=== PATIENT | female | born 1985 | race Caucasian/White ===

== ENCOUNTER 2017-11-16 12:59 | Observation (INO) | payer OTHER ==
[~2017-11-16] VITALS: Ht 162.6 cm; Wt 82.6 kg
[2017-11-16] MEDS ORDERED: PREN-380 PO (13:56)
[2017-11-16 14:55] VITALS: BP 124/79
[2017-11-16] MEDS ORDERED: INFLUENZA VIRUS VACCINE QUAD 0.5 ML SYR IMVAC SCH (22:00)
== END 2017-11-16 16:35 | disposition home or self-care (01) ==
LOC: MLD 12:59
PROVIDERS: ADMIT Obstetrics & Gynecology; ATTEND Obstetrics & Gynecology
DX: O26.893 Other specified pregnancy related conditions, third trimester (principal); R10.9 Unspecified abdominal pain; Z3A.36 36 weeks gestation of pregnancy
CPT/HCPCS: 76805; G0378; Q0092

== ENCOUNTER 2017-11-19 16:55 | Inpatient (IN) | payer OTHER ==
[~2017-11-19] VITALS: Ht 162.6 cm; Wt 82.6 kg
[~2017-11-19 16:55] MED LIST: PREN-380 PO
[2017-11-19] MEDS ORDERED: ACETAMINOPHEN 325 MG TAB ONE (17:32)
[2017-11-19 18:00] VITALS: BP 133/83
[2017-11-19] MEDS: LACTATED RINGERS 1,000 ML IV SCH (22:19)
[2017-11-20] MEDS: LACTATED RINGERS 1,000 ML IV SCH ×2 (05:48→15:36)
[2017-11-20] MEDS ORDERED: ACETAMINOPHEN 325 MG TAB ONE ×3 (08:03→19:55)
[2017-11-20] MEDS: ACETAMINOPHEN 325 MG TAB PO PRN ×3 (08:05→19:59)
[2017-11-20] MEDS ORDERED: LABETALOL 200 MG TAB PO STA (08:29)
[2017-11-20] MEDS ORDERED: LABETALOL 200 MG TAB ONE ×2 (08:42→08:43)
--- NOTE | 2017-11-20 09:08 | NUR ---
PATIENT HAS BEEN SCREENED AND CATEGORIZED LOW NUTRITION RISK. PATIENT WILL BE SEEN WITHIN 7 DAYS OF ADMISSION. 11/25/[address]
[2017-11-20 11:18] LABS: BASOPHILS # (AUTO) 0.1 K/uL (0.00-0.22); BASOPHILS % (AUTO) 0.7 % (0.0-2.0); EOSINOPHILS # (AUTO) 0.1 K/uL (0-0.4); EOSINOPHILS % (AUTO) 0.8 % (0.0-4.0); HEMATOCRIT 35.4 % (36-48); HEMOGLOBIN 11.9 g/dL (12.0-16.0); LYMPHOCYTES # (AUTO) 2.2 K/uL (2.5-16.5); LYMPHOCYTES % (AUTO) 22.9 % (20.5-51.1); MEAN CORPUSCULAR HEMOGLOBIN 28 pg (27-31); MEAN CORPUSCULAR HGB CONC 34 g/dL (33-37); MEAN CORPUSCULAR VOLUME 82 fL (80-94); MONOCYTES # (AUTO) 0.7 K/uL (0.8-1.0); MONOCYTES % (AUTO) 7.5 % (1.7-9.3); NEUTROPHILS # (AUTO) 6.4 K/uL (1.8-7.7); NEUTROPHILS % (AUTO) 68.1 % (42.2-75.2); PLATELET COUNT (AUTO) 255 K/uL (140-450); RED BLOOD CELL COUNT(AUTO) 4.31 MIL/uL (4.20-5.40); RED CELL DISTRIBUTION WIDTH 14.8 % (11.6-13.7); WHITE BLOOD COUNT (AUTO) 9.5 K/uL (4.8-10.8)
[2017-11-20 11:47] LABS: ANION GAP 14.4 (8-16); CARBON DIOXIDE 20.6 mmol/L (21-32); CREATININE 0.5 mg/dL (0.6-1.3)
[2017-11-20 11:51] LABS: ALBUMIN 2.3 g/dL (3.4-5.0); TOTAL BILIRUBIN 0.2 mg/dL (0.0-1.0)
[2017-11-20 11:52] LABS: PROTHROMBIN TIME 9.4 secs (10.8-13.4)
[2017-11-20] MEDS ORDERED: MISOPROSTOL 25 MCG TAB VG SCH (12:05)
[2017-11-20] MEDS ORDERED: NALBUPHINE HYDROCHLORIDE 10 MG/ML VIAL IVP PRN (12:10)
[2017-11-20] MEDS ORDERED: CARBOPROST 250 MCG/ML AMP IM PRN (12:10)
[2017-11-20] MEDS ORDERED: METHYLERGONOVINE 0.2 MG/ML AMP IM PRN ×2 (12:10→20:30)
[2017-11-20] MEDS ORDERED: PROMETHAZINE 25 MG/ML VIAL IVP PRN (12:10)
[2017-11-20] MEDS ORDERED: OXYTOCIN 10 UNITS/ML VIAL IM SCH (12:10)
[2017-11-20] MEDS ORDERED: MISOPROSTOL 25 MCG TAB VG PRN (12:10)
[2017-11-20] MEDS ORDERED: AMPICILLIN 2,000 MG in NACL 0.9% 100 ML IV SCH (14:15)
[2017-11-20] MEDS ORDERED: MISOPROSTOL 25 MCG TAB ONE (15:33)
[2017-11-20] MEDS ORDERED: AMPICILLIN 2,000 MG VIAL ONE (15:38)
[2017-11-20] MEDS ORDERED: AMPICILLIN 1,000 MG in NACL 0.9% 50 ML IV SCH (16:00)
[2017-11-20] MEDS ORDERED: AMPICILLIN 1,000 MG VIAL ONE (19:55)
[2017-11-20] MEDS ORDERED: OXYTOCIN 20 UNITS in LACTATED RINGERS 1,000 ML IV SCH (20:27)
[2017-11-20] MEDS ORDERED: oxyCODONE/APAP 5/325 MG 1 TAB TAB PO PRN (20:30)
[2017-11-20] MEDS ORDERED: TEMAZEPAM 15 MG CAP PO PRN (20:30)
[2017-11-20] MEDS ORDERED: TRIMETHOBENZAMIDE 200 MG/2 ML SYR IM PRN (20:30)
[2017-11-20] MEDS ORDERED: IBUPROFEN 800 MG TAB PO PRN (20:30)
[2017-11-20] MEDS ORDERED: MEASLES, MUMPS, AND RUBELLA 1 VIAL SQVAC PRN (20:30)
[2017-11-20] MEDS ORDERED: HYDROcodone/APAP 5/325 MG 1 TAB TAB PO PRN (20:30)
[2017-11-20] MEDS ORDERED: SIMETHICONE 80 MG TAB.CHEW PO PRN (20:30)
[2017-11-20] MEDS ORDERED: LABETALOL 100 MG TAB PO SCH (21:00)
[2017-11-20] MEDS: DOCUSATE SOD/SENNA 50/8.6 MG 1 TAB PO SCH (21:00)
[2017-11-20] MEDS ORDERED: LABETALOL 100 MG TAB ONE (21:36)
[2017-11-21] MEDS ORDERED: NALBUPHINE HYDROCHLORIDE 10 MG/ML VIAL ONE (01:18)
[2017-11-21] MEDS ORDERED: PROMETHAZINE 25 MG/ML VIAL ONE (01:19)
[2017-11-21] MEDS ORDERED: PROMETHAZINE 25 MG/ML VIAL IVP PRN (01:35)
[2017-11-21] MEDS ORDERED: NALBUPHINE 10 MG/ML AMP IVP PRN (01:35)
[2017-11-21] MEDS ORDERED: BUPIVACAINE 0.125%/NS PREMIX 250 ML ONE (02:39)
[2017-11-21] MEDS ORDERED: OXYTOCIN 10 UNITS/ML VIAL ONE ×2 (03:28)
[2017-11-21 08:26] LABS: BASOPHILS # (AUTO) 0.1 K/uL (0.00-0.22); BASOPHILS % (AUTO) 0.5 % (0.0-2.0); EOSINOPHILS # (AUTO) 0.1 K/uL (0-0.4); EOSINOPHILS % (AUTO) 0.9 % (0.0-4.0); HEMATOCRIT 34.9 % (36-48); HEMOGLOBIN 11.6 g/dL (12.0-16.0); LYMPHOCYTES # (AUTO) 1.5 K/uL (2.5-16.5); LYMPHOCYTES % (AUTO) 9.4 % (20.5-51.1); MEAN CORPUSCULAR HEMOGLOBIN 28 pg (27-31); MEAN CORPUSCULAR HGB CONC 33 g/dL (33-37); MEAN CORPUSCULAR VOLUME 84 fL (80-94); MONOCYTES # (AUTO) 0.9 K/uL (0.8-1.0); MONOCYTES % (AUTO) 5.9 % (1.7-9.3); NEUTROPHILS # (AUTO) 13.2 K/uL (1.8-7.7); NEUTROPHILS % (AUTO) 83.3 % (42.2-75.2); PLATELET COUNT (AUTO) 262 K/uL (140-450); RED BLOOD CELL COUNT(AUTO) 4.18 MIL/uL (4.20-5.40); WHITE BLOOD COUNT (AUTO) 15.8 K/uL (4.8-10.8)
[2017-11-21] MEDS: DOCUSATE SOD/SENNA 50/8.6 MG 1 TAB PO SCH (22:41)
[2017-11-22] MEDS ORDERED: IBUP-1842 PO (09:43)
== END 2017-11-22 16:15 | disposition home or self-care (01) | DRG 560 ==
LOC: MLD 16:55 → OBSVTOIN 11-20 12:05 → MFCC 11-21 08:30
PROVIDERS: ADMIT Obstetrics & Gynecology; ATTEND Obstetrics & Gynecology
PROC: 10E0XZZ Delivery of Products of Conception, External Approach (ICD-10-PCS; principal; 2017-11-21)
PROC: 3E0P7VZ Introduction of Hormone into Female Reproductive, Via Natural or Artificial Opening (ICD-10-PCS; 2017-11-21)
PROC: 00HU33Z Insertion of Infusion Device into Spinal Canal, Percutaneous Approach (ICD-10-PCS; 2017-11-21)
PROC: 3E0R3BZ Introduction of Anesthetic Agent into Spinal Canal, Percutaneous Approach (ICD-10-PCS; 2017-11-21)
PROC: 3E0234Z Introduction of Serum, Toxoid and Vaccine into Muscle, Percutaneous Approach (ICD-10-PCS; 2017-11-22)
DX: O77.0 Labor and delivery complicated by meconium in amniotic fluid (principal); O89.4 Spinal and epidural anesthesia-induced headache during the puerperium; Z23 Encounter for immunization; Z37.0 Single live birth; Z3A.37 37 weeks gestation of pregnancy
CPT/HCPCS: G0378 ×19; 36415; 59025; 59409; 76815; 76819; 80053; 81000; 85025; 85379; 85384; 85610; 85730; 86592; 86762; 86886; 86900; 86901; 87340; 87653-90; 90715; J0290; J2300; J2550; J2590; J3490; J7120; Q0092

== ENCOUNTER 2017-11-22 20:04 | Emergency (ER) | payer OTHER ==
[~2017-11-22] VITALS: Ht 162.6 cm; Wt 79.9 kg
[~2017-11-22 20:04] MED LIST changes: +IBUP-1842 PO
[2017-11-22 20:17] VITALS: BP 142/96
--- NOTE | 2017-11-22 20:20 | NUR ---
PT IS A 32 Y/O F WHO PRESENTED TO ER WITH C/O PASSING PART OF HER PLACENTA AT HOME. PT STATES, "I HAD MY BABY HERE AT 3 AM AND LEFT AT 5 AM THIS MORNING. I WENT TO THE BATHROOM 2 HOURS AGO AND PART OF THE PLACENTA CAME OUT." PT DENIES ANY ANY N/V/D. PT STATES SHE JUST HAS "SORENESS FROM PASSING A BABY." VSS, RR EVEN/UNLABORED. NO S/S OF DISTRESS NOTED. ER MD DR. COLES MADE AWARE, BED IN LOWEST POSITION, WILL CONTINUE TO MONITOR
--- NOTE | 2017-11-22 21:00 | NUR ---
PT RESTING IN BED NO S/S OF DISTRESS NOTED. VSS
--- NOTE | 2017-11-22 21:18 | NUR ---
TO ER BED 3
[2017-11-22 21:29] VITALS: BP 148/80
--- NOTE | 2017-11-22 21:29 | NUR ---
Patient discharged with v/s stable BY DR. COLES. Written and verbal after care instructions given and explained BY DR. COLES. Patient verbalized understanding. Ambulatory with steady gait. All questions addressed prior to discharge/Advised to follow up with PMD BY DR. COLES
== END 2017-11-22 21:29 | disposition home or self-care (01) ==
LOC: MED 20:04
DX: O73.1 Retained portions of placenta and membranes, without hemorrhage (principal); Z37.0 Single live birth
CPT/HCPCS: 99283

== ENCOUNTER 2017-11-26 20:40 | Inpatient (IN) | payer OTHER ==
[~2017-11-26] VITALS: Ht 162.6 cm; Wt 77.6 kg
[2017-11-26 20:40] VITALS: BP 146/92
[2017-11-26 21:49] LABS: BASOPHILS # (AUTO) 0.2 K/uL (0.00-0.22); BASOPHILS % (AUTO) 1.4 % (0.0-2.0); EOSINOPHILS # (AUTO) 0.2 K/uL (0-0.4); EOSINOPHILS % (AUTO) 1.5 % (0.0-4.0); HEMOGLOBIN 11.8 g/dL (12.0-16.0); LYMPHOCYTES # (AUTO) 2.9 K/uL (2.5-16.5); LYMPHOCYTES % (AUTO) 24.9 % (20.5-51.1); MEAN CORPUSCULAR HEMOGLOBIN 27 pg (27-31); MEAN CORPUSCULAR HGB CONC 33 g/dL (33-37); MEAN CORPUSCULAR VOLUME 83 fL (80-94); MONOCYTES # (AUTO) 0.9 K/uL (0.8-1.0); MONOCYTES % (AUTO) 7.8 % (1.7-9.3); NEUTROPHILS # (AUTO) 7.3 K/uL (1.8-7.7); NEUTROPHILS % (AUTO) 64.4 % (42.2-75.2); PLATELET COUNT (AUTO) 427 K/uL (140-450); RED BLOOD CELL COUNT(AUTO) 4.34 MIL/uL (4.20-5.40); RED CELL DISTRIBUTION WIDTH 15.5 % (11.6-13.7); WHITE BLOOD COUNT (AUTO) 11.5 K/uL (4.8-10.8)
[2017-11-26 22:06] LABS: ANION GAP 18.2 (8-16); CARBON DIOXIDE 20.7 mmol/L (21-32); CREATININE 0.6 mg/dL (0.6-1.3); POTASSIUM 3.9 mmol/L (3.5-5.1)
[2017-11-26 22:08] LABS: BARBITURATE, URINE NEG. ng/ml (NEG <=200); BENZODIAZEPINE, URINE NEG. ng/mL (NEG <=200); CANNABINOID, URINE NEG. ng/mL (NEG <=50); COCAINE, URINE NEG. ng/mL (NEG <=300); OPIATE, URINE NEG. ng/mL (NEG <=2000); PHENCYCLIDINE SCREEN,URINE NEG. ng/mL (NEG <=25)
[2017-11-26 22:10] LABS: ALBUMIN 2.8 g/dL (3.4-5.0); TOTAL BILIRUBIN 0.1 mg/dL (0.0-1.0)
[2017-11-26 22:37] LABS: APPEARANCE,URINE TURBID (CLEAR); BILIRUBIN,URINE 1+ (NEGATIVE); BLOOD, URINE 3+ (NEGATIVE); COLOR,URINE RED (YELLOW); LEUKOCYTE ESTERASE ,URINE 3+ (NEGATIVE); NITRITE, URINE POSITIVE (NEGATIVE); PH,URINE 6.5 (5.0-9.0); UGLUCOSE NEGATIVE (NEGATIVE)
[2017-11-26 22:53] LABS: RBC,URINE TOO NUMEROUS TO COUN /HPF (0-5); WBC,URINE TOO MANY TO COUNT /HPF (0-5)
[2017-11-26] MEDS ORDERED: hydrALAZINE 20 MG/ML VIAL IVP PRN (23:20)
[2017-11-26] MEDS ORDERED: ACETAMINOPHEN 325 MG TAB PO PRN (23:20)
[2017-11-26] MEDS ORDERED: HYDROcodone/APAP 5/325 MG 1 TAB TAB PO PRN (23:20)
[2017-11-26] MEDS ORDERED: MORPHINE SULFATE 2 MG/ML SYR IVP PRN (23:20)
[2017-11-26] MEDS ORDERED: ONDANSETRON 4 MG/2 ML VIAL IVP PRN (23:20)
[2017-11-26] MEDS ORDERED: NITROGLYCERIN 2% 1 GM PKT TP ONE (23:20)
[2017-11-26] MEDS ORDERED: NACL 0.9% 1,000 ML IV ONE (23:25)
[2017-11-26] MEDS ORDERED: cefTRIAXone 1,000 MG VIAL ONE (23:27)
[2017-11-26 23:50] VITALS: BP 145/93
[2017-11-27 04:00] VITALS: BP 137/88
[2017-11-27] MEDS: HYDROcodone/APAP 5/325 MG 1 TAB TAB PO PRN ×2 (04:47→15:04)
[2017-11-27 06:32] LABS: CREATINE KINASE MB 1.5 ng/mL (0-3.6)
[2017-11-27 08:05] VITALS: BP 146/94
[2017-11-27] MEDS ORDERED: traMADol 50 MG TAB PO PRN (08:25)
[2017-11-27] MEDS ORDERED: LISI5TAB18 PO ×2 (08:44→08:46)
[2017-11-27 12:16] VITALS: BP 137/87
[2017-11-27 16:00] VITALS: BP 140/93
[2017-11-27 16:15] LABS: CREATINE KINASE MB 1.2 ng/mL (0-3.6)
== END 2017-11-27 20:05 | disposition home or self-care (01) | DRG 203 ==
LOC: MED 20:40 → MTU 23:18
PROVIDERS: ADMIT Hospitalist; ATTEND Hospitalist
DX: M94.0 Chondrocostal junction syndrome [Tietze] (principal); E44.1 Mild protein-calorie malnutrition; O90.89 Other complications of the puerperium, not elsewhere classified; O86.20 Urinary tract infection following delivery, unspecified; E83.42 Hypomagnesemia; R07.89 Other chest pain; R51 Headache; O11.5 Pre-existing hypertension with pre-eclampsia, complicating the puerperium; O10.93 Unspecified pre-existing hypertension complicating the puerperium; Z90.49 Acquired absence of other specified parts of digestive tract
CPT/HCPCS: 36415; 70450; 71045; 80053; 80305; 81001; 82550; 82553; 83735; 84484; 85025; 85379; 87081; 87086; 93005; 96374; 99285; J0696; J7030; J7060; Q0092

== ENCOUNTER 2021-02-19 18:07 | Emergency (ER) | payer OTHER ==
[~2021-02-19] VITALS: Ht 160 cm; Wt 72.6 kg
[~2021-02-19 18:07] MED LIST changes: +LISI5TAB18 PO
--- NOTE | 2021-02-19 18:11 | NUR ---
PATIENT AMBULATED WITH STEADY GAIT TO BED 9.
--- NOTE | 2021-02-19 18:15 | NUR ---
35 Y/O FEMALE PRESENTS TO ED STATING THAT SHE IS AND IS EXPERIENCING ABDOMINAL TIGHTNESS, A LOT OF STRESS AND WANTS TO CHECK ON THE BABY. LMP 10/07/20. PT DENIES VAGINAL BLEEDING. PT DENIES OBGYN AND CARE. PT DENIES PAIN AT THIS TIME. PT STATED THAT SHE HAD URINE TEST IN [place] AND IT CAME BACK POSITIVE BUT NEVER GOT THE RESULTS FOR BLOOD TEST. PT STATES THIS IS HER 8TH WITH 7 LIVING CHILDREN ALL DELIVERED VAGINALLY. PT ALSO REPORTS THAT SHE HAD A "FULL BODY INFECTION X2 MONTHS AGO IN [place]" BUT NOW SHE IS FINE. PT DENIES N/V. PT IN [place]. PT A/O X4 WITH EVEN AND UNLABORED RESPIRATIONS. PMH:ANEMIA NKDA
[2021-02-19 18:16] VITALS: BP 127/84
--- NOTE | 2021-02-19 18:27 | NUR ---
DR SORENSON AT BEDSIDE FOR EVALUATION
[2021-02-19 19:05] LABS: BASOPHILS % (AUTO) 0.4 % (0.0-2.0); EOSINOPHILS # (AUTO) 0.2 K/uL (0-0.4); EOSINOPHILS % (AUTO) 2.1 % (0.0-4.0); HEMATOCRIT 32.5 % (36-48); HEMOGLOBIN 10.9 g/dL (12.0-16.0); LYMPHOCYTES # (AUTO) 2.3 K/uL (2.5-16.5); LYMPHOCYTES % (AUTO) 20.6 % (20.5-51.1); MEAN CORPUSCULAR HEMOGLOBIN 29 pg (27-31); MEAN CORPUSCULAR HGB CONC 34 g/dL (33-37); MEAN CORPUSCULAR VOLUME 85.4 fL (80-94); MONOCYTES # (AUTO) 0.8 K/uL (0.8-1.0); MONOCYTES % (AUTO) 7.3 % (1.7-9.3); NEUTROPHILS # (AUTO) 7.9 K/uL (1.8-7.7); NEUTROPHILS % (AUTO) 69.6 % (42.2-75.2); PLATELET COUNT (AUTO) 311 K/uL (140-450); RED BLOOD CELL COUNT(AUTO) 3.81 MIL/uL (4.20-5.40); RED CELL DISTRIBUTION WIDTH 16.7 % (11.6-13.7); WHITE BLOOD COUNT (AUTO) 11.3 K/uL (4.8-10.8)
--- NOTE | 2021-02-19 19:10 | NUR ---
REPORT GIVEN TO TIAGO HERNANDEZ FOR TRANSFER OF CARE
--- NOTE | 2021-02-19 19:17 | NUR ---
US AT BEDSIDE
[2021-02-19 19:25] LABS: ALBUMIN 2.9 g/dL (3.4-5.0); ANION GAP 12.8 (8-16); CREATININE 0.5 mg/dL (0.6-1.3); POTASSIUM 3.8 mmol/L (3.5-5.1); TOTAL BILIRUBIN 0.1 mg/dL (0.0-1.0)
--- NOTE | 2021-02-19 19:26 | NUR ---
received pt from Jazmine day shift RN. pt connected to vs monitoring. currently a/o x 4 gcs 15. able to move all extremities freely. NAD noted.
--- NOTE | 2021-02-19 20:27 | NUR ---
Dr. Cam with pt for reassessment.
[2021-02-19] MEDS ORDERED: CEPH-588 PO (21:23)
[2021-02-19 21:40] VITALS: BP 132/71
--- NOTE | 2021-02-19 21:44 | NUR ---
WITH PERMISSION FROM PATIENT CALLED MOTHER NIMESH TO PICK PATIENT UP. MOTHER STATES WILL PICK PATIENT UP IN ER LOBBY.
== END 2021-02-19 21:40 | disposition home or self-care (01) ==
LOC: MED 18:07
DX: O23.42 Unspecified infection of urinary tract in pregnancy, second trimester (principal); O26.892 Other specified pregnancy related conditions, second trimester; R10.9 Unspecified abdominal pain; Z3A.20 20 weeks gestation of pregnancy; I11.0 Hypertensive heart disease with heart failure
CPT/HCPCS: 36415; 76805; 80053; 81002; 81025; 84702; 85025; 99284

== ENCOUNTER 2021-06-26 12:45 | Observation (INO) | payer OTHER, SELFPAY ==
[~2021-06-26 12:45] MED LIST changes: +CEPH-588 PO
[2021-06-26 15:07] LABS: BASOPHILS % (AUTO) 0.3 % (0.0-2.0); EOSINOPHILS # (AUTO) 0.1 K/uL (0-0.4); EOSINOPHILS % (AUTO) 1.3 % (0.0-4.0); HEMATOCRIT 33.5 % (36-48); HEMOGLOBIN 11.2 g/dL (12.0-16.0); LYMPHOCYTES # (AUTO) 1.7 K/uL (2.5-16.5); LYMPHOCYTES % (AUTO) 17.9 % (20.5-51.1); MEAN CORPUSCULAR HEMOGLOBIN 29 pg (27-31); MEAN CORPUSCULAR HGB CONC 34 g/dL (33-37); MEAN CORPUSCULAR VOLUME 87.8 fL (80-94); MONOCYTES % (AUTO) 10.5 % (1.7-9.3); NEUTROPHILS # (AUTO) 6.8 K/uL (1.8-7.7); PLATELET COUNT (AUTO) 268 K/uL (140-450); RED BLOOD CELL COUNT(AUTO) 3.81 MIL/uL (4.20-5.40); RED CELL DISTRIBUTION WIDTH 15.5 % (11.6-13.7); WHITE BLOOD COUNT (AUTO) 9.7 K/uL (4.8-10.8)
[2021-06-26 15:29] LABS: APPEARANCE,URINE CLEAR (CLEAR); BILIRUBIN,URINE NEGATIVE (NEGATIVE); BLOOD, URINE 1+ (NEGATIVE); COLOR,URINE YELLOW (YELLOW); LEUKOCYTE ESTERASE ,URINE 3+ (NEGATIVE); NITRITE, URINE NEGATIVE (NEGATIVE); PH,URINE 6.5 (5.0-9.0); UGLUCOSE NEGATIVE (NEGATIVE)
[2021-06-26 17:15] LABS: WBC,URINE 20-60 /HPF (0-5)
== END 2021-06-26 17:15 | disposition home or self-care (01) ==
LOC: MLD 12:45
PROVIDERS: ADMIT Obstetrics & Gynecology; ATTEND Obstetrics & Gynecology
DX: O26.893 Other specified pregnancy related conditions, third trimester (principal); R10.9 Unspecified abdominal pain; Z20.822 Contact with and (suspected) exposure to COVID-19; Z3A.38 38 weeks gestation of pregnancy
CPT/HCPCS: 36415; 76805; 76819; 81001; 85025; 86592; 86703; 87086; 87426; 87653; G0378; Q0092; 59025

== ENCOUNTER 2021-07-02 14:40 | Observation (INO) | payer OTHER, SELFPAY ==
[~2021-07-02] VITALS: Ht 165.1 cm; Wt 87.1 kg
[~2021-07-02 14:40] MED LIST changes: -CEPH-588 PO; -IBUP-1842 PO; -LISI5TAB18 PO
[2021-07-02 15:18] VITALS: BP 132/87
== END 2021-07-02 18:15 | disposition home or self-care (01) ==
LOC: MLD 14:40
PROVIDERS: ADMIT Obstetrics & Gynecology; ATTEND Obstetrics & Gynecology
DX: O26.893 Other specified pregnancy related conditions, third trimester (principal); R10.9 Unspecified abdominal pain; Z3A.38 38 weeks gestation of pregnancy; W18.39XA Other fall on same level, initial encounter; Y93.89 Activity, other specified; Y92.009 Unspecified place in unspecified non-institutional (private) residence as the place of occurrence of the external cause
CPT/HCPCS: 59025; 76819; 81000; G0378; Q0092

== ENCOUNTER 2021-07-03 21:51 | Inpatient (IN) | payer OTHER, SELFPAY ==
[~2021-07-03] VITALS: Ht 165.1 cm; Wt 87.1 kg
[~2021-07-03 21:51] MED LIST changes: +MISOPROSTOL 200 MCG TAB VG SCH
[2021-07-03] MEDS ORDERED: LACTATED RINGERS 500 ML IV SCH (22:25)
[2021-07-03] MEDS ORDERED: PROMETHAZINE 25 MG/ML VIAL IVP PRN (22:25)
[2021-07-03] MEDS ORDERED: CARBOPROST 250 MCG/ML AMP IM PRN (22:25)
[2021-07-03] MEDS ORDERED: METHYLERGONOVINE 0.2 MG/ML AMP IM PRN (22:25)
[2021-07-03 22:51] LABS: APPEARANCE,URINE CLEAR (CLEAR); BILIRUBIN,URINE NEGATIVE (NEGATIVE); BLOOD, URINE 1+ (NEGATIVE); COLOR,URINE YELLOW (YELLOW); LEUKOCYTE ESTERASE ,URINE 2+ (NEGATIVE); NITRITE, URINE NEGATIVE (NEGATIVE); PH,URINE 6.5 (5.0-9.0); UGLUCOSE NEGATIVE (NEGATIVE)
[2021-07-03 22:53] LABS: BASOPHILS % (AUTO) 0.2 % (0.0-2.0); EOSINOPHILS # (AUTO) 0.1 K/uL (0-0.4); HEMATOCRIT 32.9 % (36-48); HEMOGLOBIN 10.9 g/dL (12.0-16.0); LYMPHOCYTES # (AUTO) 2.3 K/uL (2.5-16.5); LYMPHOCYTES % (AUTO) 19.3 % (20.5-51.1); MEAN CORPUSCULAR HEMOGLOBIN 29 pg (27-31); MEAN CORPUSCULAR HGB CONC 33 g/dL (33-37); MONOCYTES # (AUTO) 1.4 K/uL (0.8-1.0); MONOCYTES % (AUTO) 11.7 % (1.7-9.3); NEUTROPHILS # (AUTO) 7.9 K/uL (1.8-7.7); NEUTROPHILS % (AUTO) 67.8 % (42.2-75.2); PLATELET COUNT (AUTO) 288 K/uL (140-450); RED BLOOD CELL COUNT(AUTO) 3.74 MIL/uL (4.20-5.40); RED CELL DISTRIBUTION WIDTH 15.9 % (11.6-13.7); WHITE BLOOD COUNT (AUTO) 11.7 K/uL (4.8-10.8)
[2021-07-03 23:02] LABS: RBC,URINE 0-5 /HPF (0-5)
[2021-07-03 23:10] LABS: ALBUMIN 2.7 g/dL (3.4-5.0); ANION GAP 14.3 (8-16); CARBON DIOXIDE 21.3 mmol/L (21-32); CREATININE 0.6 mg/dL (0.6-1.3); POTASSIUM 3.6 mmol/L (3.5-5.1); TOTAL BILIRUBIN 0.1 mg/dL (0.0-1.0)
[2021-07-04] MEDS: LACTATED RINGERS 1,000 ML IV SCH ×6 (00:10→20:30)
[2021-07-04] MEDS ORDERED: MISOPROSTOL 25 MCG TAB VG SCH (00:30)
[2021-07-04] MEDS ORDERED: MISOPROSTOL 25 MCG TAB ONE (00:50)
[2021-07-04 01:20] VITALS: BP 123/74
[2021-07-04] MEDS: NALBUPHINE 10 MG/ML AMP IVP PRN (04:47)
[2021-07-04] MEDS ORDERED: ROPIVACAINE 0.2%/NS PREMIX 200 ML EPI ONE ×2 (05:31→18:43)
[2021-07-04] MEDS ORDERED: ROPIVACAINE 0.2%/NS PREMIX 100 ML EPI SCH (05:45)
[2021-07-04] MEDS ORDERED: OXYTOCIN 20 UNITS/LR PREMIX 1,000 ML IV ONE (07:52)
[2021-07-04] MEDS: OXYTOCIN 20 UNITS in LACTATED RINGERS 1,000 ML IV SCH (08:00)
--- NOTE | 2021-07-04 10:47 | NUR ---
PATIENT HAS BEEN SCREENED AND CATEGORIZED LOW NUTRITION RISK. PATIENT WILL BE SEEN WITHIN 7 DAYS OF ADMISSION. 07/09/[address]
[2021-07-04] MEDS ORDERED: ACETAMINOPHEN 325 MG TAB PO PRN (22:45)
[2021-07-04] MEDS ORDERED: ACETAMINOPHEN 325 MG TAB ONE (22:49)
[2021-07-05 01:05] LABS: BASOPHILS % (AUTO) 0.4 % (0.0-2.0); EOSINOPHILS # (AUTO) 0.1 K/uL (0-0.4); EOSINOPHILS % (AUTO) 0.8 % (0.0-4.0); HEMATOCRIT 38.9 % (36-48); HEMOGLOBIN 12.9 g/dL (12.0-16.0); LYMPHOCYTES # (AUTO) 1.9 K/uL (2.5-16.5); LYMPHOCYTES % (AUTO) 24.4 % (20.5-51.1); MEAN CORPUSCULAR HEMOGLOBIN 30 pg (27-31); MEAN CORPUSCULAR HGB CONC 33 g/dL (33-37); MEAN CORPUSCULAR VOLUME 89.8 fL (80-94); MONOCYTES # (AUTO) 0.7 K/uL (0.8-1.0); MONOCYTES % (AUTO) 8.9 % (1.7-9.3); NEUTROPHILS % (AUTO) 65.5 % (42.2-75.2); PLATELET COUNT (AUTO) 109 K/uL (140-450); RED BLOOD CELL COUNT(AUTO) 4.34 MIL/uL (4.20-5.40); RED CELL DISTRIBUTION WIDTH 15.1 % (11.6-13.7); WHITE BLOOD COUNT (AUTO) 7.7 K/uL (4.8-10.8)
[2021-07-05] MEDS ORDERED: ONDANSETRON 4 MG/2 ML VIAL IVP PRN (01:30)
[2021-07-05] MEDS ORDERED: MORPHINE SULFATE 5 MG/ML VIAL IVP PRN (01:30)
[2021-07-05 01:33] LABS: BASOPHILS % (AUTO) 0.3 % (0.0-2.0); EOSINOPHILS % (AUTO) 0.3 % (0.0-4.0); HEMATOCRIT 32.1 % (36-48); HEMOGLOBIN 10.9 g/dL (12.0-16.0); LYMPHOCYTES # (AUTO) 1.7 K/uL (2.5-16.5); LYMPHOCYTES % (AUTO) 10.7 % (20.5-51.1); MEAN CORPUSCULAR HEMOGLOBIN 30 pg (27-31); MEAN CORPUSCULAR HGB CONC 34 g/dL (33-37); MEAN CORPUSCULAR VOLUME 87.1 fL (80-94); MONOCYTES # (AUTO) 1.3 K/uL (0.8-1.0); MONOCYTES % (AUTO) 8.4 % (1.7-9.3); NEUTROPHILS # (AUTO) 12.4 K/uL (1.8-7.7); NEUTROPHILS % (AUTO) 80.3 % (42.2-75.2); PLATELET COUNT (AUTO) 256 K/uL (140-450); RED BLOOD CELL COUNT(AUTO) 3.68 MIL/uL (4.20-5.40); RED CELL DISTRIBUTION WIDTH 15.8 % (11.6-13.7); WHITE BLOOD COUNT (AUTO) 15.5 K/uL (4.8-10.8)
[2021-07-05] MEDS ORDERED: ONDANSETRON 4 MG/2 ML VIAL ONE (01:34)
[2021-07-05] MEDS ORDERED: MORPHINE SULFATE 10 MG/ML VIAL ONE ×2 (01:35→04:26)
[2021-07-05 01:44] VITALS: BP 118/59
[2021-07-05] MEDS: NALBUPHINE 10 MG/ML AMP IVP PRN (06:13)
[2021-07-05] MEDS: LACTATED RINGERS 1,000 ML IV SCH (07:20)
[2021-07-05] MEDS ORDERED: LIDOCAINE 1% 500 MG/50 ML VIAL ONE (08:11)
[2021-07-05] MEDS ORDERED: MISOPROSTOL 200 MCG TAB ONE (08:32)
[2021-07-05] MEDS ORDERED: MISOPROSTOL 100 MCG TAB PO SCH (08:35)
[2021-07-05] MEDS ORDERED: OXYTOCIN 20 UNITS/LR PREMIX 1,000 ML IV ONE (09:04)
[2021-07-05] MEDS: OXYTOCIN 20 UNITS in LACTATED RINGERS 1,000 ML IV SCH (09:53)
[2021-07-05] MEDS ORDERED: HYDROcodone/APAP 5/325 MG 1 TAB TAB PO PRN (20:45)
[2021-07-05] MEDS ORDERED: BENZOCAINE/MENTHOL 20%-0.5% 60 GM CAN TP PRN (20:50)
[2021-07-05] MEDS: ACETAMINOPHEN 325 MG TAB PO PRN (21:42)
[2021-07-06 06:07] LABS: HEPATITIS B SURFACE ANTIGEN Negative (Negative)
[2021-07-06 06:14] LABS: HEMATOCRIT 29.2 % (36-48); HEMOGLOBIN 9.7 g/dL (12.0-16.0)
[2021-07-06] MEDS: ACETAMINOPHEN 325 MG TAB PO PRN ×2 (10:57→15:38)
== END 2021-07-06 16:40 | disposition home or self-care (01) | DRG 560 ==
LOC: MLD 21:51 → MFCC 07-05 10:30
PROVIDERS: ADMIT Obstetrics & Gynecology; ATTEND Obstetrics & Gynecology
PROC: 10E0XZZ Delivery of Products of Conception, External Approach (ICD-10-PCS; principal; 2021-07-05)
PROC: 3E033VJ Introduction of Other Hormone into Peripheral Vein, Percutaneous Approach (ICD-10-PCS; 2021-07-05)
PROC: 3E0P7GC Introduction of Other Therapeutic Substance into Female Reproductive, Via Natural or Artificial Opening (ICD-10-PCS; 2021-07-05)
DX: O80 Encounter for full-term uncomplicated delivery (principal); Z37.0 Single live birth; Z20.822 Contact with and (suspected) exposure to COVID-19; Z3A.39 39 weeks gestation of pregnancy
CPT/HCPCS: 36415; 51702; 59200; 59409; 76815; 80053; 81001; 85018; 85025; 86592; 86762; 86886; 86900; 86901; 87086; 87340; 90715; J2001; J2210; J2270; J2300; J2405; J2550; J2590; J2795; J3490; Q0092

== ENCOUNTER 2022-06-30 14:43 | Observation (INO) | payer OTHER ==
[~2022-06-30] VITALS: Ht 162.6 cm; Wt 85.7 kg
[~2022-06-30 14:43] MED LIST changes: -MISOPROSTOL 200 MCG TAB VG SCH
[2022-06-30 15:57] VITALS: BP 150/72
== END 2022-06-30 17:12 | disposition home or self-care (01) ==
LOC: MLD 14:43
PROVIDERS: ADMIT Obstetrics & Gynecology; ATTEND Obstetrics & Gynecology
DX: O42.913 Preterm premature rupture of membranes, unspecified as to length of time between rupture and onset of labor, third trimester (principal); O26.893 Other specified pregnancy related conditions, third trimester; R51.9 Headache, unspecified; O99.891 Other specified diseases and conditions complicating pregnancy; M79.605 Pain in left leg; M79.604 Pain in right leg; Z3A.35 35 weeks gestation of pregnancy
CPT/HCPCS: 76815; G0378; Q0092; 59025; 81000

== ENCOUNTER 2022-07-07 22:39 | Observation (INO) | payer OTHER ==
[~2022-07-07] VITALS: Ht 162.6 cm; Wt 72.6 kg
[2022-07-07 23:40] VITALS: BP 135/85
[2022-07-07] MEDS ORDERED: ACETAMINOPHEN 325 MG TAB PO PRN (23:50)
[2022-07-07] MEDS ORDERED: ACETAMINOPHEN 325 MG TAB ONE (23:56)
[2022-07-08 01:00] LABS: BASOPHILS # (AUTO) 0.1 K/uL (0.00-0.22); BASOPHILS % (AUTO) 0.6 % (0.0-2.0); EOSINOPHILS # (AUTO) 0.1 K/uL (0-0.4); EOSINOPHILS % (AUTO) 1.3 % (0.0-4.0); HEMATOCRIT 32.6 % (36-48); HEMOGLOBIN 11.3 g/dL (12.0-16.0); LYMPHOCYTES # (AUTO) 2.3 K/uL (2.5-16.5); LYMPHOCYTES % (AUTO) 20.8 % (20.5-51.1); MEAN CORPUSCULAR HEMOGLOBIN 29 pg (27-31); MEAN CORPUSCULAR HGB CONC 35 g/dL (33-37); MEAN CORPUSCULAR VOLUME 85.1 fL (80-94); MONOCYTES % (AUTO) 9.6 % (1.7-9.3); NEUTROPHILS # (AUTO) 7.4 K/uL (1.8-7.7); NEUTROPHILS % (AUTO) 67.7 % (42.2-75.2); PLATELET COUNT (AUTO) 252 K/uL (140-450); RED BLOOD CELL COUNT(AUTO) 3.83 MIL/uL (4.20-5.40); WHITE BLOOD COUNT (AUTO) 10.9 K/uL (4.8-10.8)
[2022-07-08 01:19] LABS: URINE TOTAL PROTEIN 26.6 mg/dL (0-12)
[2022-07-08 01:26] LABS: ALBUMIN 2.6 g/dL (3.4-5.0); ANION GAP 15.4 (8-16); CARBON DIOXIDE 20.2 mmol/L (21-32); CREATININE 0.6 mg/dL (0.6-1.3); POTASSIUM 3.6 mmol/L (3.5-5.1); TOTAL BILIRUBIN 0.1 mg/dL (0.0-1.0); URIC ACID 5.6 mg/dL (2.6-7.2)
[2022-07-08 01:29] LABS: APPEARANCE,URINE CLEAR (CLEAR); BILIRUBIN,URINE NEGATIVE (NEGATIVE); BLOOD, URINE 3+ (NEGATIVE); COLOR,URINE YELLOW (YELLOW); LEUKOCYTE ESTERASE ,URINE 2+ (NEGATIVE); NITRITE, URINE NEGATIVE (NEGATIVE); UGLUCOSE NEGATIVE (NEGATIVE)
[2022-07-08 01:31] LABS: PROTHROMBIN TIME 9.3 secs (10.8-13.4)
[2022-07-08 01:44] LABS: RBC,URINE 50-80 /HPF (0-5); WBC,URINE 0-5 /HPF (0-5)
== END 2022-07-08 03:20 | disposition home or self-care (01) ==
LOC: MLD 22:39
PROVIDERS: ADMIT Obstetrics & Gynecology; ATTEND Obstetrics & Gynecology
DX: O60.03 Preterm labor without delivery, third trimester (principal); Z20.822 Contact with and (suspected) exposure to COVID-19; O46.93 Antepartum hemorrhage, unspecified, third trimester; O26.893 Other specified pregnancy related conditions, third trimester; R03.0 Elevated blood-pressure reading, without diagnosis of hypertension; R51.9 Headache, unspecified; O09.43 Supervision of pregnancy with grand multiparity, third trimester; Z3A.37 37 weeks gestation of pregnancy
CPT/HCPCS: 36415; 80053; 81001; 82570; 84550; 85025; 85384; 85610; 85730; 87086; 87426; G0378; G0379

== ENCOUNTER 2022-07-09 10:53 | Inpatient (IN) | payer OTHER ==
[~2022-07-09] VITALS: Ht 162.6 cm; Wt 87.5 kg
[2022-07-09 11:39] VITALS: BP 128/78
[2022-07-09] MEDS ORDERED: ACETAMINOPHEN 325 MG TAB ONE (12:21)
[2022-07-09 13:57] LABS: URINE TOTAL PROTEIN 5.6 mg/dL (0-12)
[2022-07-09] MEDS ORDERED: ONDANSETRON 4 MG/2 ML VIAL IVP PRN (18:45)
[2022-07-09] MEDS ORDERED: CARBOPROST 250 MCG/ML AMP IM ONE (18:45)
[2022-07-09] MEDS ORDERED: MORPHINE SULFATE 10 MG/ML VIAL IVP PRN (18:55)
[2022-07-09 19:18] LABS: BASOPHILS % (AUTO) 0.5 % (0.0-2.0); EOSINOPHILS # (AUTO) 0.1 K/uL (0-0.4); EOSINOPHILS % (AUTO) 1.5 % (0.0-4.0); HEMATOCRIT 32.6 % (36-48); HEMOGLOBIN 11.3 g/dL (12.0-16.0); MEAN CORPUSCULAR HEMOGLOBIN 30 pg (27-31); MEAN CORPUSCULAR HGB CONC 35 g/dL (33-37); MEAN CORPUSCULAR VOLUME 85.1 fL (80-94); MONOCYTES # (AUTO) 0.6 K/uL (0.8-1.0); MONOCYTES % (AUTO) 6.7 % (1.7-9.3); NEUTROPHILS # (AUTO) 6.4 K/uL (1.8-7.7); NEUTROPHILS % (AUTO) 69.3 % (42.2-75.2); PLATELET COUNT (AUTO) 255 K/uL (140-450); RED BLOOD CELL COUNT(AUTO) 3.83 MIL/uL (4.20-5.40); RED CELL DISTRIBUTION WIDTH 15.5 % (11.6-13.7); WHITE BLOOD COUNT (AUTO) 9.2 K/uL (4.8-10.8)
[2022-07-09] MEDS ORDERED: ACETAMINOPHEN 325 MG TAB PO ONE (20:05)
[2022-07-09 20:07] LABS: PROTHROMBIN TIME 9.3 secs (10.8-13.4)
[2022-07-09 20:10] LABS: ALBUMIN 2.6 g/dL (3.4-5.0); ANION GAP 17.8 (8-16); CARBON DIOXIDE 20.9 mmol/L (21-32); CREATININE 0.8 mg/dL (0.6-1.3); POTASSIUM 3.7 mmol/L (3.5-5.1); TOTAL BILIRUBIN 0.1 mg/dL (0.0-1.0)
[2022-07-09] MEDS: ACETAMINOPHEN 325 MG TAB PO PRN (20:10)
[2022-07-09] MEDS: LACTATED RINGERS 1,000 ML IV SCH (20:33)
[2022-07-09 20:50] LABS: APPEARANCE,URINE CLEAR (CLEAR); BILIRUBIN,URINE NEGATIVE (NEGATIVE); BLOOD, URINE TRACE-L (NEGATIVE); COLOR,URINE YELLOW (YELLOW); LEUKOCYTE ESTERASE ,URINE NEGATIVE (NEGATIVE); NITRITE, URINE NEGATIVE (NEGATIVE); PH,URINE 6.5 (5.0-9.0); UGLUCOSE NEGATIVE (NEGATIVE)
[2022-07-09] MEDS: OXYTOCIN 20 UNITS in LACTATED RINGERS 1,000 ML IV SCH (21:15)
[2022-07-09] MEDS ORDERED: OXYTOCIN 20 UNITS/LR PREMIX 1,000 ML IV ONE (21:17)
[2022-07-09 21:44] LABS: RBC,URINE 0-5 /HPF (0-5); WBC,URINE 0-5 /HPF (0-5)
[2022-07-10] MEDS: LACTATED RINGERS 1,000 ML IV SCH ×3 (04:53→21:40)
[2022-07-10] MEDS ORDERED: ACETAMINOPHEN 325 MG TAB PO PRN (05:00)
[2022-07-10] MEDS: ACETAMINOPHEN 325 MG TAB PO PRN (05:13)
[2022-07-10] MEDS ORDERED: OXYTOCIN 20 UNITS/LR PREMIX 1,000 ML IV ONE (05:59)
--- NOTE | 2022-07-10 13:06 | NUR ---
PATIENT HAS BEEN SCREENED AND CATEGORIZED LOW NUTRITION RISK. PATIENT WILL BE SEEN WITHIN 7 DAYS OF ADMISSION. 07/16/[address]
[2022-07-10 20:07] LABS: BASOPHILS % (AUTO) 0.5 % (0.0-2.0); EOSINOPHILS # (AUTO) 0.1 K/uL (0-0.4); EOSINOPHILS % (AUTO) 1.1 % (0.0-4.0); HEMATOCRIT 30.2 % (36-48); HEMOGLOBIN 10.3 g/dL (12.0-16.0); LYMPHOCYTES # (AUTO) 1.8 K/uL (2.5-16.5); LYMPHOCYTES % (AUTO) 20.6 % (20.5-51.1); MEAN CORPUSCULAR HEMOGLOBIN 29 pg (27-31); MEAN CORPUSCULAR HGB CONC 34 g/dL (33-37); MEAN CORPUSCULAR VOLUME 85.7 fL (80-94); MONOCYTES # (AUTO) 0.8 K/uL (0.8-1.0); MONOCYTES % (AUTO) 9.3 % (1.7-9.3); NEUTROPHILS # (AUTO) 6.1 K/uL (1.8-7.7); NEUTROPHILS % (AUTO) 68.5 % (42.2-75.2); PLATELET COUNT (AUTO) 237 K/uL (140-450); RED BLOOD CELL COUNT(AUTO) 3.52 MIL/uL (4.20-5.40); RED CELL DISTRIBUTION WIDTH 15.3 % (11.6-13.7); WHITE BLOOD COUNT (AUTO) 8.8 K/uL (4.8-10.8)
[2022-07-10 20:27] LABS: ALBUMIN 2.3 g/dL (3.4-5.0); CARBON DIOXIDE 21.5 mmol/L (21-32); CREATININE 0.6 mg/dL (0.6-1.3); POTASSIUM 3.5 mmol/L (3.5-5.1); TOTAL BILIRUBIN 0.1 mg/dL (0.0-1.0)
[2022-07-10 20:33] LABS: PROTHROMBIN TIME 9.3 secs (10.8-13.4)
[2022-07-11] MEDS: LACTATED RINGERS 1,000 ML IV SCH ×3 (00:07→14:08)
[2022-07-11] MEDS: LABETALOL 100 MG TAB PO SCH ×2 (08:01→08:03)
[2022-07-11] MEDS: ACETAMINOPHEN 325 MG TAB PO PRN ×2 (09:29→18:03)
[2022-07-11] MEDS ORDERED: OXYTOCIN 20 UNITS/LR PREMIX 1,000 ML IV ONE (16:34)
[2022-07-11] MEDS: OXYTOCIN 20 UNITS in LACTATED RINGERS 1,000 ML IV SCH (17:00)
[2022-07-12] MEDS: LACTATED RINGERS 1,000 ML IV SCH ×2 (00:07→12:30)
[2022-07-12] MEDS: ACETAMINOPHEN 325 MG TAB PO PRN (05:29)
[2022-07-12 07:07] LABS: HEPATITIS B SURFACE ANTIGEN Negative (Negative)
[2022-07-12] MEDS ORDERED: AMPICILLIN 2,000 MG in NACL 0.9% 100 ML IV ONE (09:25)
[2022-07-12] MEDS: LABETALOL 100 MG TAB PO SCH (09:30)
[2022-07-12] MEDS ORDERED: AMPICILLIN 2,000 MG VIAL ONE (09:47)
[2022-07-12] MEDS ORDERED: ROPIVACAINE 0.2%/NS PREMIX 200 ML EPI ONE (10:48)
[2022-07-12] MEDS ORDERED: fentaNYL citrate 0.05 MG/ML VIAL ONE (10:48)
[2022-07-12 12:43] LABS: BASOPHILS # (AUTO) 0.1 K/uL (0.00-0.22); BASOPHILS % (AUTO) 0.3 % (0.0-2.0); EOSINOPHILS % (AUTO) 0.2 % (0.0-4.0); HEMATOCRIT 33.5 % (36-48); LYMPHOCYTES # (AUTO) 1.3 K/uL (2.5-16.5); LYMPHOCYTES % (AUTO) 7.3 % (20.5-51.1); MEAN CORPUSCULAR HEMOGLOBIN 29 pg (27-31); MEAN CORPUSCULAR HGB CONC 33 g/dL (33-37); MEAN CORPUSCULAR VOLUME 86.8 fL (80-94); MONOCYTES # (AUTO) 1.3 K/uL (0.8-1.0); MONOCYTES % (AUTO) 7.3 % (1.7-9.3); NEUTROPHILS # (AUTO) 14.5 K/uL (1.8-7.7); NEUTROPHILS % (AUTO) 84.9 % (42.2-75.2); PLATELET COUNT (AUTO) 243 K/uL (140-450); RED BLOOD CELL COUNT(AUTO) 3.87 MIL/uL (4.20-5.40); RED CELL DISTRIBUTION WIDTH 15.3 % (11.6-13.7); WHITE BLOOD COUNT (AUTO) 17.1 K/uL (4.8-10.8)
[2022-07-12 13:03] LABS: ALBUMIN 2.5 g/dL (3.4-5.0); ANION GAP 14.4 (8-16); CARBON DIOXIDE 23.2 mmol/L (21-32); CREATININE 0.6 mg/dL (0.6-1.3); POTASSIUM 4.6 mmol/L (3.5-5.1); TOTAL BILIRUBIN 0.2 mg/dL (0.0-1.0)
[2022-07-12] MEDS ORDERED: CARBOPROST 250 MCG/ML AMP IM ONE (13:51)
[2022-07-12] MEDS ORDERED: MISOPROSTOL 200 MCG TAB ONE (13:52)
[2022-07-12] MEDS ORDERED: AMPICILLIN 1,000 MG in NACL 0.9% 50 ML IV SCH (14:00)
[2022-07-12] MEDS ORDERED: DIPHENOXYLATE /ATROPINE 2.5 MG TAB PO PRN (15:20)
[2022-07-12] MEDS ORDERED: METHYLERGONOVINE 0.2 MG/ML AMP IM PRN (16:35)
[2022-07-12] MEDS ORDERED: OXYTOCIN 10 UNITS/ML VIAL IM PRN (16:35)
[2022-07-12] MEDS ORDERED: oxyCODONE/APAP 5/325 MG 1 TAB TAB PO PRN (16:35)
[2022-07-12] MEDS ORDERED: bisacodyL 10 MG SUPP RC PRN (16:35)
[2022-07-12] MEDS ORDERED: BENZOCAINE/MENTHOL 20%-0.5% 60 GM CAN TP PRN (16:35)
[2022-07-12] MEDS ORDERED: IBUPROFEN 600 MG TAB PO PRN (16:35)
[2022-07-12] MEDS ORDERED: HYDROcodone/APAP 5/325 MG 1 TAB TAB PO PRN (16:35)
[2022-07-12 17:05] LABS: HEMOGLOBIN 11.1 g/dL (12.0-16.0)
[2022-07-12] MEDS ORDERED: FLU VACCINE QS2022-23 0.5 ML SYR IMVAC ONE ×2 (21:50)
[2022-07-13 07:30] LABS: HEMATOCRIT 25.7 % (36-48); HEMOGLOBIN 8.8 g/dL (12.0-16.0)
[2022-07-13] MEDS: LABETALOL 100 MG TAB PO SCH (11:57)
[2022-07-13 16:27] LABS: BASOPHILS % (AUTO) 0.1 % (0.0-2.0); EOSINOPHILS # (AUTO) 0.1 K/uL (0-0.4); EOSINOPHILS % (AUTO) 0.6 % (0.0-4.0); HEMATOCRIT 24.1 % (36-48); LYMPHOCYTES # (AUTO) 2.1 K/uL (2.5-16.5); LYMPHOCYTES % (AUTO) 10.7 % (20.5-51.1); MEAN CORPUSCULAR HEMOGLOBIN 28 pg (27-31); MEAN CORPUSCULAR HGB CONC 33 g/dL (33-37); MEAN CORPUSCULAR VOLUME 85.5 fL (80-94); MONOCYTES # (AUTO) 1.6 K/uL (0.8-1.0); MONOCYTES % (AUTO) 8.1 % (1.7-9.3); NEUTROPHILS # (AUTO) 16.2 K/uL (1.8-7.7); NEUTROPHILS % (AUTO) 80.5 % (42.2-75.2); PLATELET COUNT (AUTO) 218 K/uL (140-450); RED BLOOD CELL COUNT(AUTO) 2.82 MIL/uL (4.20-5.40); RED CELL DISTRIBUTION WIDTH 15.5 % (11.6-13.7); WHITE BLOOD COUNT (AUTO) 20.1 K/uL (4.8-10.8)
[2022-07-14] MEDS: LABETALOL 100 MG TAB PO SCH (09:45)
[2022-07-14] MEDS ORDERED: NIFE30TE5 PO (11:20)
[2022-07-14] MEDS ORDERED: FERR325E14 PO (11:44)
== END 2022-07-14 15:00 | disposition home or self-care (01) | DRG 560 ==
LOC: MLD 10:53 → OBSVTOIN 18:50 → MFCC 07-12 20:44
PROVIDERS: ADMIT Obstetrics & Gynecology; ATTEND Obstetrics & Gynecology
PROC: 10907ZC Drainage of Amniotic Fluid, Therapeutic from Products of Conception, Via Natural or Artificial Opening (ICD-10-PCS; 2022-07-11)
PROC: 10E0XZZ Delivery of Products of Conception, External Approach (ICD-10-PCS; principal; 2022-07-12)
PROC: 3E0R3BZ Introduction of Anesthetic Agent into Spinal Canal, Percutaneous Approach (ICD-10-PCS; 2022-07-12)
PROC: 00HU33Z Insertion of Infusion Device into Spinal Canal, Percutaneous Approach (ICD-10-PCS; 2022-07-12)
PROC: 3E0234Z Introduction of Serum, Toxoid and Vaccine into Muscle, Percutaneous Approach (ICD-10-PCS; 2022-07-12)
DX: O13.4 Gestational [pregnancy-induced] hypertension without significant proteinuria, complicating childbirth (principal); Z37.0 Single live birth; O14.94 Unspecified pre-eclampsia, complicating childbirth; Z20.822 Contact with and (suspected) exposure to COVID-19; O90.81 Anemia of the puerperium; O70.0 First degree perineal laceration during delivery; Z3A.37 37 weeks gestation of pregnancy
CPT/HCPCS: 36415; 59409; 76815; 80053; 81001; 82570; 82948; 84484; 84550; 85018; 85025; 85384; 85610; 85730; 86592; 86762; 86886; 86900; 86901; 87340; 90715; 93005; J0290; J2590; J2795; J3010; J3490; J7120; Q0092

== ENCOUNTER 2023-11-24 21:07 | Emergency (ER) | payer OTHER ==
[~2023-11-24] VITALS: Ht 165.1 cm; Wt 77.1 kg
[~2023-11-24 21:07] MED LIST changes: +FERR325E14 PO; +NIFE30TE5 PO
[2023-11-24 21:13] VITALS: BP 121/77; PULSE 89; RESP 16; TEMP 98; O2SAT 100
[2023-11-24 21:21] VITALS: O2SAT 99
[2023-11-24 23:15] LABS: BASOPHILS # (AUTO) 0.1 K/uL (0.00-0.22); BASOPHILS % (AUTO) 0.7 % (0.0-2.0); EOSINOPHILS # (AUTO) 0.2 K/uL (0-0.4); EOSINOPHILS % (AUTO) 2.2 % (0.0-4.0); HEMATOCRIT 36.4 % (36-48); HEMOGLOBIN 12.2 g/dL (12.0-16.0); LYMPHOCYTES # (AUTO) 2.8 K/uL (2.5-16.5); LYMPHOCYTES % (AUTO) 25.5 % (20.5-51.1); MEAN CORPUSCULAR HEMOGLOBIN 27 pg (27-31); MEAN CORPUSCULAR HGB CONC 33 g/dL (33-37); MEAN CORPUSCULAR VOLUME 80.1 fL (80-94); MONOCYTES # (AUTO) 1.1 K/uL (0.8-1.0); NEUTROPHILS # (AUTO) 6.8 K/uL (1.8-7.7); NEUTROPHILS % (AUTO) 61.6 % (42.2-75.2); PLATELET COUNT (AUTO) 435 K/uL (140-450); RED BLOOD CELL COUNT(AUTO) 4.54 MIL/uL (4.20-5.40); RED CELL DISTRIBUTION WIDTH 17.1 % (11.6-13.7)
[2023-11-24 23:25] LABS: ANION GAP 12.1 (8-16); CALCIUM 8.3 mg/dL (8.5-10.1); CARBON DIOXIDE 27.1 mmol/L (21-32); CREATININE 0.6 mg/dL (0.6-1.3); POTASSIUM 4.2 mmol/L (3.5-5.1)
[2023-11-24 23:31] VITALS: O2SAT 99
[2023-11-24 23:45] LABS: INR 0.9 (0.8-1.2); PROTHROMBIN TIME 9.5 secs (10.8-13.4)
[2023-11-25] MEDS: MORPHINE SULFATE 4 MG/ML SYR IVP ONE (01:24)
[2023-11-25 01:40] VITALS: O2SAT 99
[2023-11-25 02:00] VITALS: BP 118/68; PULSE 79; RESP 17; TEMP 98; O2SAT 98
== END 2023-11-25 04:15 | disposition short-term general hospital (02) ==
LOC: MED 21:07
DX: S51.811A Laceration without foreign body of right forearm, initial encounter (principal); I11.9 Hypertensive heart disease without heart failure; Z79.899 Other long term (current) drug therapy; X78.1XXA Intentional self-harm by knife, initial encounter; Y93.89 Activity, other specified; Y92.89 Other specified places as the place of occurrence of the external cause; Y99.8 Other external cause status
CPT/HCPCS: 36415; 80048; 85025; 85610; 85730; 96374; 99285; J2270; Q9967

== ENCOUNTER 2023-11-30 15:01 | Emergency (ER) | payer OTHER ==
[~2023-11-30] VITALS: Ht 165.1 cm; Wt 86.6 kg
[2023-11-30 15:49] VITALS: BP 132/76; PULSE 90; RESP 17; TEMP 97.8; O2SAT 96
[2023-11-30] MEDS ORDERED: ACET-8905 PO (18:13)
[2023-11-30 18:37] VITALS: BP 132/76; PULSE 90; RESP 17; TEMP 97.8; O2SAT 96
== END 2023-11-30 18:38 | disposition home or self-care (01) ==
LOC: MED 15:01
DX: S51.811D Laceration without foreign body of right forearm, subsequent encounter (principal); Z48.00 Encounter for change or removal of nonsurgical wound dressing; I10 Essential (primary) hypertension; Z79.899 Other long term (current) drug therapy; X58.XXXD Exposure to other specified factors, subsequent encounter
CPT/HCPCS: 99283

== ENCOUNTER 2023-12-03 14:05 | Emergency (ER) | payer OTHER ==
[~2023-12-03] VITALS: Ht 165.1 cm; Wt 86.2 kg
[~2023-12-03 14:05] MED LIST changes: +ACET-8905 PO
[2023-12-03 14:15] VITALS: BP 122/82; PULSE 86; RESP 16; TEMP 98.2; O2SAT 98
[2023-12-03] MEDS: ACETAMINOPHEN 325 MG TAB PO ONE (15:29)
[2023-12-03 16:16] VITALS: BP 125/80; PULSE 87; RESP 12; TEMP 98.2; O2SAT 99
== END 2023-12-03 16:16 | disposition home or self-care (01) ==
LOC: MED 14:05
DX: S51.811D Laceration without foreign body of right forearm, subsequent encounter (principal); Z48.02 Encounter for removal of sutures; I10 Essential (primary) hypertension; Z79.899 Other long term (current) drug therapy; X58.XXXD Exposure to other specified factors, subsequent encounter
CPT/HCPCS: 99282